=== PATIENT | female | born 1950 | race Caucasian/White ===

== ENCOUNTER 2021-07-12 10:29 | Observation (INO) | payer MEDICARE ==
[~2021-07-12] VITALS: Ht 157.5 cm; Wt 70.5 kg
[2021-07-12] MEDS ORDERED: ondansetron 4mg rapidly disintigrating tab PO ONE (11:10)
[2021-07-12 11:47] LABS: BASOPHILS % (AUTO) 0.1 % (0-1); EOSINOPHILS % (AUTO) 0 % (0-6); HEMATOCRIT 39.8 % (35.0-45.0); HEMOGLOBIN 14.1 g/dl (12.0-16.0); LYMPHOCYTES # (AUTO) 1.1 X10'3 (1.1-4.8); LYMPHOCYTES % (AUTO) 16.3 % (21-51); MEAN CORPUSCULAR HEMOGLOBIN 31.7 PG (27.0-31.0); MEAN CORPUSCULAR HGB CONC 35.5 g/dL (33.0-36.5); MEAN CORPUSCULAR VOLUME 89.3 FL (78-98); MEAN PLATELET VOLUME 7.2 FL (7.4-10.4); MONOCYTES # (AUTO) 0.7 X10'3 (0-0.9); MONOCYTES % (AUTO) 10.7 % (2-12); NEUTROPHILS % (AUTO) 72.9 % (42-75); PLATELET COUNT 236 X10'3 (140-440); RED BLOOD COUNT 4.46 X10'6 (4.20-5.60); RED CELL DISTRIBUTION WIDTH 12.2 % (11.5-14.5); WHITE BLOOD COUNT 6.8 X10'3 (4.5-11.0)
[2021-07-12 12:03] LABS: ALANINE AMINOTRANSFERASE 33 U/L (12-78); ALBUMIN 3.6 G/DL (3.4-5.0); ALKALINE PHOSPHATASE 71 IU/L (46-116); ANION GAP 13 (8-16); ASPARTATE AMINO TRANSFERASE 38 U/L (10-37); BILIRUBIN,TOTAL 0.9 MG/DL (0.1-1.0); BLOOD UREA NITROGEN 7 MG/DL (7-18); BUN/CREATININE RATIO 12.3 (6.6-38.0); CALCIUM 8.2 MG/DL (8.5-10.1); CHLORIDE 85 MMOL/L (99-107); CREATININE 0.57 MG/DL (0.40-0.90); GLUCOSE 120 MG/DL (70-104); POTASSIUM 3.7 MMOL/L (3.5-5.1); SODIUM 121 MMOL/L (135-145); TOTAL CARBON DIOXIDE 22.9 MMOL/L (24-32); TOTAL PROTEIN 7.1 G/DL (6.4-8.2); eGFR > 90 ML/MIN
[2021-07-12] MEDS ORDERED: normal saline 1000ml 1,000 ML IV ONE (12:40)
[2021-07-12 14:02] LABS: ANION GAP 9 (8-16); BLOOD UREA NITROGEN 7 MG/DL (7-18); BUN/CREATININE RATIO 12.1 (6.6-38.0); CALCIUM 7.5 MG/DL (8.5-10.1); CHLORIDE 88 MMOL/L (99-107); CREATININE 0.58 MG/DL (0.40-0.90); GLUCOSE 98 MG/DL (70-104); POTASSIUM 3.4 MMOL/L (3.5-5.1); SODIUM 122 MMOL/L (135-145); TOTAL CARBON DIOXIDE 25.4 MMOL/L (24-32); eGFR > 90 ML/MIN
[2021-07-12] MEDS ORDERED: MELO7.5T12 PO (14:56)
[2021-07-12] MEDS ORDERED: potassium CL 10mEq/100ml bag 100 ML IV PRN (15:00)
[2021-07-12] MEDS ORDERED: potassium Cl 20 mEq SR tablet PO PRN ×2 (15:00)
[2021-07-12] MEDS ORDERED: magnesium 4gm in 100ml NS 100 ML IV PRN (15:00)
[2021-07-12] MEDS ORDERED: ondansetron/PF 4mg/2ml inj IV ONE (15:00)
[2021-07-12] MEDS ORDERED: magnesium Cl slow-release 64mg tablet PO PRN (15:00)
[2021-07-12] MEDS ORDERED: magnesium hydroxide 30ml (MOM) UD suspension PO PRN (15:00)
[2021-07-12] MEDS ORDERED: acetaminophen 325mg tablet PO PRN (15:00)
[2021-07-12] MEDS ORDERED: mag hydrox/Alum hydrox/simeth 30ml oral suspension PO PRN (15:00)
[2021-07-12] MEDS ORDERED: magnesium 2GM in 50ml NS 50 ML IV PRN (15:00)
[2021-07-12] MEDS ORDERED: ondansetron/PF 4mg/2ml inj IV PRN (15:00)
[2021-07-12] MEDS: levoFLOXACIN-Levaquin 500mg/D5 100 ML IV SCH (15:22)
[2021-07-12] MEDS: normal saline 1000ml 1,000 ML IV SCH (15:22)
[2021-07-12 15:37] LABS: MAGNESIUM 1.9 MG/DL (1.5-2.4); POTASSIUM 3.6 MMOL/L (3.5-5.1)
[2021-07-12] MEDS: K and/or MAG REPLACEMENT MC SCH (20:00)
[2021-07-12] MEDS: docusate sod 100mg capsule PO SCH (20:00)
[2021-07-13] MEDS: normal saline 1000ml 1,000 ML IV SCH ×2 (01:00→07:22)
[2021-07-13 01:07] LABS: RED BLOOD COUNT 4.06 X10'6 (4.20-5.60); WHITE BLOOD COUNT 6.4 X10'3 (4.5-11.0)
[2021-07-13 01:15] LABS: ALBUMIN 3.1 G/DL (3.4-5.0); ANION GAP 11 (8-16); BLOOD UREA NITROGEN 7 MG/DL (7-18); BUN/CREATININE RATIO 9.6 (6.6-38.0); CHLORIDE 94 MMOL/L (99-107); CREATININE 0.73 MG/DL (0.40-0.90); GLUCOSE 99 MG/DL (70-104); POTASSIUM 3.6 MMOL/L (3.5-5.1); SODIUM 129 MMOL/L (135-145); TOTAL CARBON DIOXIDE 23.7 MMOL/L (24-32); eGFR 79 ML/MIN
[2021-07-13 02:15] LABS: EOSINOPHILS % (AUTO) 0 % (0-6); NEUTROPHILS % (AUTO) 65.8 % (42-75)
[2021-07-13 02:16] LABS: BASOPHILS % (AUTO) 0.2 % (0-1); LYMPHOCYTES # (AUTO) 1.3 X10'3 (1.1-4.8); MONOCYTES # (AUTO) 0.9 X10'3 (0-0.9); NEUTROPHILS # (AUTO) 4.2 X10'3 (1.8-7.7)
[2021-07-13 02:17] LABS: HEMATOCRIT 36.7 % (35.0-45.0); MEAN CORPUSCULAR HEMOGLOBIN 32.1 PG (27.0-31.0); MEAN CORPUSCULAR HGB CONC 35.4 g/dL (33.0-36.5); MEAN CORPUSCULAR VOLUME 90.4 FL (78-98)
[2021-07-13 02:18] LABS: MEAN PLATELET VOLUME 7.5 FL (7.4-10.4); PLATELET COUNT 223 X10'3 (140-440); RED CELL DISTRIBUTION WIDTH 12.4 % (11.5-14.5)
[2021-07-13 06:40] VITALS: BP 136/69
[2021-07-13] MEDS: levoFLOXACIN-Levaquin 500mg/D5 100 ML IV SCH (07:13)
[2021-07-13] MEDS: docusate sod 100mg capsule PO SCH (07:13)
[2021-07-13] MEDS ORDERED: enoxaparin 40mg/0.4ml syringe SUBCUT SCH (08:00)
[2021-07-13] MEDS: K and/or MAG REPLACEMENT MC SCH (08:00)
[2021-07-13] MEDS ORDERED: DEXAMETHASONE 6 MG TABLET PO SCH (08:05)
[2021-07-13 09:54] LABS: ALBUMIN 2.9 G/DL (3.4-5.0); ANION GAP 8 (8-16); BLOOD UREA NITROGEN 6 MG/DL (7-18); BUN/CREATININE RATIO 8.7 (6.6-38.0); CALCIUM 7.9 MG/DL (8.5-10.1); CHLORIDE 98 MMOL/L (99-107); CREATININE 0.69 MG/DL (0.40-0.90); GLUCOSE 100 MG/DL (70-104); POTASSIUM 3.1 MMOL/L (3.5-5.1); SODIUM 133 MMOL/L (135-145); TOTAL CARBON DIOXIDE 27.3 MMOL/L (24-32); eGFR 84 ML/MIN
[2021-07-13 10:00] VITALS: BP 112/55
[2021-07-13] MEDS ORDERED: potassium Cl 20 mEq SR tablet PO STA (12:15)
--- NOTE | 2021-07-13 12:16 | NUR ---
per Dr. Bhupendra west to give 1 more 40meq dose of potassium before discharge.
[2021-07-13] MEDS ORDERED: DEC4T PO (12:46)
--- NOTE | 2021-07-13 13:55 | NUR ---
Patient discharged at this time. Patient educated about dexamethasone. Called Dr. Huizar and asked about an anti-nausea meds because patient thought if her nausea worsened. I told patient I would call her if MD called back with order, otherwise I told her to go to ED or call 911 in condition worsened as per MD. Patient understood and left to private vehicle with dangelo in wheelchair.
[2021-07-13] MEDS ORDERED: ONDA4TAB6 PO (14:12)
== END 2021-07-13 13:55 | disposition home health service (06) ==
LOC: ER 10:30 → ED HOLD 15:03 → ORTHO 4S 07-13 05:10
PROVIDERS: ADMIT Family Medicine; ATTEND Family Medicine
DX: U07.1 COVID-19 (principal); R11.2 Nausea with vomiting, unspecified; B34.9 Viral infection, unspecified; E87.1 Hypo-osmolality and hyponatremia; G89.29 Other chronic pain; M54.9 Dorsalgia, unspecified; J98.11 Atelectasis; Z88.0 Allergy status to penicillin; Z79.899 Other long term (current) drug therapy
CPT/HCPCS: 36415; 71045; 80048; 80053; 83735; 84132; 85025; 87081; 87502; 87503; 87635; 96361; 96365; 96366; 96372; 96375; 99284; G0378; J1956; J2405; J7030; J1650; J8540